=== PATIENT | female | born 1955 | race African-American/Black ===

== ENCOUNTER → 2017-10-26 | Outpatient (CLI) | payer BC ==
[~2017-10-26] MED LIST: LIPITOR; TAMOXIFEN; Z.0.LIPITOR40 MG
--- NOTE | 2017-10-26 16:32 | Diagnostic Imaging Report ---
PROCEDURE:US ABDOMEN LIMITED COMPARISON:Patients [facility] [place], [place], CT ABDOMEN/PELVIS WO, 04/11/2011, 14:26. INDICATIONS:RUQ Pain TECHNIQUE: Degroot-scale and color doppler transverse and longitudinal images of the right upper quadrant of the abdomen were obtained. FINDINGS: Liver: 14.5 cm in right mid-clavicular line. Increased echogenicity. No masses. Main portal vein: 1.0 cm, hepatopetal flow Gallbladder: No stones, sludge, wall thickening, or pericholecystic fluid. Common Bile Duct: 0.4 cm Sonographic Monroy's sign: Negative Right kidney: 10.6 cm. Normal echogenicity. No solid masses, stones or hydronephrosis. 1.9 x 1.7 x 1.9 cm cystic, anechoic lesion in the inferior pole Pancreas: The visualized portions are unremarkable. Inferior vena cava: Patent Aorta: Within normal limits Ascites: None in the right upper quadrant of the abdomen. CONCLUSION: 1. No sonographic evidence of cholelithiasis or cholecystitis. 2. Increased echogenicity of the hepatic parenchyma, consistent with hepatic steatosis. No focal lesions. 3. Stable 1.9 cm simple cyst in the right kidney when compared to a previous CT. Christiano Carlisle M.D. Dictated by: Christiano Carlisle M.D. on 10/26/2017 at 16:37 Electronically approved by: Christiano Carlisle M.D. on 10/26/2017 at 16:37
== END ==
LOC: US 14:44
PROVIDERS: ATTEND Family Medicine
DX: R10.11 Right upper quadrant pain (principal)
CPT/HCPCS: 76705

== ENCOUNTER → 2017-11-24 | Outpatient (CLI) | payer BC ==
--- NOTE | 2017-11-24 18:29 | Diagnostic Imaging Report ---
Hepatobiliary Scan with Gallbladder Ejection Fraction Clinical information: 62 F with RUQ abdominal pain Report: Following intravenous administration of 6.6 millicuries of Tc-99m mebrofenin, dynamic images of the abdomen in the anterior projection were obtained through 22 minutes. [id number] 12 ounces (12 grams fat) was given to the patient and additional imaging through 60 minutes was obtained for determination of gallbladder ejection fraction. Perfusion to the liver is normal. Extraction of tracer from the blood pool by the liver parenchyma is normal. Tracer is seen promptly within the biliary tract. The gallbladder begins to fill by 5 minutes post-injection of tracer and fills adequately. Tracer is seen in the small bowel with the high fat drink challenge. The gallbladder ejection fraction with gallbladder stimulation with a high fat drink is 42% (normal greater than 25%). Impression: 1. Filling of the gallbladder excludes the diagnosis of acute cystic duct obstruction/acute cholecystitis. 2. Normal gallbladder ejection fraction of 42% does not support the clinical diagnosis of chronic cholecystitis/gallbladder dyskinesia. Note: Shortage of sincalide (CCK analog) so high fat drink containing at least 11 grams of fat is used as a challenge for gallbladder contraction Signed by: Dr. Aniyah Gramajo M.D. on 11/24/2017 6:26 PM
== END ==
LOC: NM 07:48
PROVIDERS: ATTEND Surgery
DX: R10.11 Right upper quadrant pain (principal)
CPT/HCPCS: 78227; A9537

== ENCOUNTER → 2017-12-20 | Day surgery (SDC) | payer BC ==
--- NOTE | 2017-12-18 17:54 | Diagnostic Imaging Report ---
EXAMINATION: CHEST 2 VIEWS INDICATION: \S\PRE ADMIT \S\[id number] \S\[id number] COMPARISON: None FINDINGS: PA and lateral views TUBES and LINES: None. LUNGS: Lungs are well inflated. Lungs are clear. There is no evidence of pneumonia or pulmonary edema. PLEURA: No pleural effusion or pneumothorax. HEART AND MEDIASTINUM: The cardiomediastinal silhouette is unremarkable. BONES AND SOFT TISSUES: No acute osseous lesion. Soft tissues are unremarkable. UPPER ABDOMEN: No free air under the diaphragm. IMPRESSION: No acute thoracic abnormality. Signed by: Dr. Alexsander Raman MD on 12/18/2017 5:50 PM
[2017-12-18 17:56] LABS: BASOPHILS # (AUTO) 0.1 (0.0-0.1); BASOPHILS % 0.7 % (0.0-1.0); EOSINOPHILS # (AUTO) 0.2 (0.0-0.4); HEMATOCRIT 38.1 % (34.2-44.1); LYMPHOCYTES # (AUTO) 2.6 (1.0-3.2); LYMPHOCYTES % 35.5 % (18.0-39.1); MEAN CORPUSCULAR HEMOGLOBIN 32.8 pg (28-32); MEAN CORPUSCULAR HGB CONC 34.1 g/dL (31-35); MEAN CORPUSCULAR VOLUME 96.2 fL (81-99); MONOCYTES # (AUTO) 0.6 (0.2-0.8); MONOCYTES % 7.8 % (4.4-11.3); NEUTROPHILS # (AUTO) 3.9 (2.1-6.9); NEUTROPHILS % 52.9 % (38.7-80.0); PLATELET COUNT 251 x10e3/uL (140-360); RED BLOOD COUNT 3.96 x10e6/uL (3.6-5.1); RED CELL DISTRIBUTION WIDTH 12.6 % (11.7-14.4)
[2017-12-18 18:10] LABS: ANION GAP 13.2 mmol/L (8-16); BLOOD UREA NITROGEN 11 mg/dL (7-26); BUN/CREATININE RATIO 13 (6-25); CALCIUM 9.8 mg/dL (8.4-10.2); CARBON DIOXIDE 27 mmol/L (22-29); CHLORIDE 105 mmol/L (98-107); CREATININE, SERUM 0.82 mg/dL (0.57-1.11); EST GLOMERULAR FILTRATION RATE > 60 ML/MIN (60-); GLUCOSE 92 mg/dL (74-118); POTASSIUM 4.2 mmol/L (3.5-5.1); SODIUM 141 mmol/L (136-145)
[~2017-12-20] MED LIST changes: +ASPIRIN81 MG; +FENTANYL CITRATE/PF 100MCG/2 ML INJ ONE; +LIDOCAINE HCL 2% LOCAL INJ 5 ML SDV VIAL INJ ONE; +LUMIGAN2.5 M1 OP; +MIDAZOLAM HCL 2 MG/2 ML VIAL ONE; +PROPOFOL IV EMULSION 10 MG/ML 20 ML VIAL ONE; +VIACTIV SOFT C1 EACH; +VITAMIN D31000 UNI1
[2017-12-20 09:30] VITALS: BP 133/83
== END | disposition home or self-care (01) ==
LOC: OR 05:42
PROVIDERS: ATTEND Surgery
DX: R10.11 Right upper quadrant pain (principal); K20.9 Esophagitis, unspecified; K22.70 Barrett's esophagus without dysplasia; Z88.2 Allergy status to sulfonamides; Z79.82 Long term (current) use of aspirin; Z85.3 Personal history of malignant neoplasm of breast
CPT/HCPCS: 36415; 43235; 71046; 80048; 85025; 93005; J2001; J2250